=== PATIENT | female | born 1950 | race Caucasian/White ===

== ENCOUNTER → 2023-08-22 09:49 | Outpatient (REF) | payer MEDICARE, SELFPAY ==
[2023-08-22 11:27] LABS: % Basophils 1.1 % (0-2); % Eosinophils 2.9 % (0-6); % Immature Granulocytes 0.2 % (0-0.5); % Lymphocytes 25.8 % (20.5-51.1); % Monocytes 5.9 % (1.7-9.3); % Neutrophils 64.1 % (42.2-75.2); Absolute Basophils 0.1 10^3/uL (0-0.2); Absolute Eosinophils 0.2 10^3/uL (0-0.7); Absolute Lymphocytes 1.6 10^3/uL (1.2-3.4); Absolute Monocytes 0.4 10^3/uL (0.1-0.6); Hematocrit 39.4 % (37.0-47.0); Hemoglobin 13.2 g/dL (12.0-16.0); Mean Corp Hgb Conc. 33.5 g/dL (33.0-37.0); Mean Corpuscular Hgb 29.9 pg (27.0-31.0); Mean Corpuscular Volume 89.3 fL (81.0-99.0); Mean Platelet Volume 13.2 fL (7.4-10.4); Nucleated Red Blood Cells % 0 %; Platelet Count 222 10^3/uL (130-400); Red Blood Cell Count 4.41 10^6/uL (4.20-5.40); Red Cell Dist. Width 13.1 % (11.5-14.5); White Blood Cell Count 6.3 10^3/uL (4.8-10.8)
[2023-08-22 11:42] LABS: Urine Albumin Trace (Neg - Trace); Urine Bilirubin Negative (Negative); Urine Character Clear (Clear); Urine Color Yellow; Urine Glucose Negative (Negative); Urine Ketone Trace (Negative); Urine Leukocyte 1+ (Negative); Urine Nitrite Negative (Negative); Urine Occult Blood 1+ (Negative); Urine Specific Gravity 1.015 (<1.030); Urine Urobilinogen Negative (Neg - 1+)
[2023-08-22 11:49] LABS: ALT (SGPT) 17 U/L (0-35); AST (SGOT) 24 U/L (14-36); Albumin 4.3 g/dl (3.5-5.0); Alkaline Phosphatase 71 U/L (38-126); Blood Urea Nitrogen 15 mg/dl (7-17); Calcium 9.8 mg/dl (8.4-10.2); Carbon Dioxide 27 mmol/L (22-30); Chloride 105 mmol/L (98-107); Glucose 104 mg/dl (70-99); HDL Cholesterol 50 mg/dl; LDL Cholesterol, Calculated 56 mg/dl; Potassium 4.7 mmol/L (3.5-5.1); Sodium 141 mmol/L (135-145); Total Bilirubin 0.7 mg/dl (0.2-1.3); Total Cholesterol 129 mg/dl (50-199); Triglyceride 115 mg/dl (10-149); Very Low Density Lipoprotein 23 mg/dl (0-30); eGFR 53.39
[2023-08-22 12:04] LABS: Urine Amorphous Seen; Urine Mucus Many; Urine Squamous Cell 16-20 /LPF (Few); Urine Urothelial Cell 21-25 /LPF (FEW)
[2023-08-22 12:07] LABS: Urine Bacteria Few (Negative); Urine Red Blood Cell 0-2 /HPF (0-2)
[2023-08-22 12:09] LABS: Urine Hyaline Cast 0-2 /LPF (0-2)
== END ==
LOC: REG 09:49
PROVIDERS: ATTENDING PHYSICIAN Nurse Practitioner Family
DX: Z15.89 Genetic susceptibility to other disease (principal); Z15.01 Genetic susceptibility to malignant neoplasm of breast; Z00.00 Encounter for general adult medical examination without abnormal findings; I10 Essential (primary) hypertension
CPT/HCPCS: 36415; 80053; 80061; 81003; 81015; 85025

== ENCOUNTER → 2023-08-28 09:41 | Outpatient (REF) | payer MEDICARE, SELFPAY ==
[2023-08-28 11:53] LABS: Glycohemoglobin (HgbA1c) 5.9 % (4.0-5.6)
[2023-08-28 12:09] LABS: C-Reactive Protein < 5.00 mg/L (0.0-10.00)
[2023-08-28 12:20] LABS: ALT (SGPT) 21 U/L (0-35); AST (SGOT) 28 U/L (14-36); Albumin 4.3 g/dl (3.5-5.0); Alkaline Phosphatase 60 U/L (38-126); Blood Urea Nitrogen 16 mg/dl (7-17); Calcium 9.7 mg/dl (8.4-10.2); Carbon Dioxide 25 mmol/L (22-30); Chloride 106 mmol/L (98-107); Glucose 98 mg/dl (70-99); Potassium 4.4 mmol/L (3.5-5.1); Sodium 141 mmol/L (135-145); Total Bilirubin 0.5 mg/dl (0.2-1.3); Total Protein 6.9 g/dl (6.3-8.2); eGFR 59.86
[2023-08-28 12:30] LABS: Total Iron Binding Capacity 328 ug/dl (265-497)
[2023-08-28 13:15] LABS: TSH Reflex To Free T4 1.73 uIU/ml (0.47-4.68)
[2023-08-28 13:20] LABS: Ferritin 38.8 ng/ml (11.1-264.0)
[2023-08-28 13:52] LABS: Folate 11.4 ng/ml (2.76-20); Vitamin B12 294 pg/ml (239-931)
== END ==
LOC: REG 09:41
PROVIDERS: ATTENDING PHYSICIAN Nurse Practitioner Family
DX: R79.89 Other specified abnormal findings of blood chemistry (principal); M25.50 Pain in unspecified joint; Z79.899 Other long term (current) drug therapy; Z80.9 Family history of malignant neoplasm, unspecified; Z85.51 Personal history of malignant neoplasm of bladder; Z15.09 Genetic susceptibility to other malignant neoplasm
CPT/HCPCS: 36415; 80053; 82607; 82652; 82728; 82746; 82784; 83036; 83521; 83550; 84155; 84165; 84443; 86140; 86334

== ENCOUNTER 2024-11-08 09:24 | Emergency (ER) | payer MEDICARE, SELFPAY ==
[2024-11-08 09:29] VITALS: BP 115/68
--- NOTE | 2024-11-08 10:15 | ED.MUSCINJ ---
HPI-Injury
General
Chief Complaint: Musculo-Skeletal Complaint
Source: patient
Exam Limitations: none
Time Seen by Provider: 11/08/24 09:58
History of Present Illness-Injury
Initial Injury comments:
74-year-old female presents complaining of right foot pain starting yesterday. She misjudged a step and twisted her foot. She notes swelling and to the dorsal proximal and lateral foot. She has not been able to bear weight on it since then.
Phy Exam
Physical Exam
Physical Exam:
General: Well-appearing female in no acute distress
Musculoskeletal exam: Right foot is swollen ecchymotic and tender over the dorsal lateral foot the distal fibula and tibia are nontender.
Vascular: 2+ DP pulse right
Neurologic: Good sensation right foot
Injury Course
Orders/Labs/Results
Orders:
Orders
11/08/24 10:14
CR Foot - Right Min 3 Views Urgent
Comment:
Reason For Exam: injury
11/08/24 10:56
Ortho Boot Right- Treatment ONCE
Short or tall?: Short
MDM/Problems Addressed
Differential Diagnosis Includes:
Right foot pain after twisting injury. Question sprain versus fracture. X-rays right foot pending
*Pulse Oximetry
SaO2: 97
Oxygen Mode of Delivery: Room air
Patient hypoxic: no
*Critical Care Note
Total Time (30-74mins, 75-104mins- exclusive of procedures): Not Applicable
Update Note
Update Note:
X-rays negative for acute fracture or dislocation. Suspect underlying sprain or strain. Concern for possible ligament or tendon involvement. Will recommend she follow-up with orthopedics as an outpatient.
ED Attending Note
-
Portions of this chart may have been created with voice recognition software.� Occasional wrong word or��sound alike� substitutions may have occurred due to the inherent limitations of voice recognition software.
Discharge Plan
Departure
Patient Disposition: Home (Routine Discharge)
Date of Disposition: 11/08/24
Time of Disposition: 10:57
Patient with high blood pressure during this ER visit?: No
Discharge Problem:
Foot sprain
Instructions: Muscle and Bone Pain (DC)
Referrals:
Buddy Nails DO [Family Provider, Family Practice]
Hugo Shore DPM [Active, Podiatry]
Activity Restrictions/Additional Instructions:
Use boot for support when ambulating. Elevate for swelling. Follow-up with foot and ankle specialist for further evaluation
Interventions
Interventions:
*Risk Screen - Suicide Last Done: 11/08/24 09:31
*Neglect/Abuse Screening Last Done: 11/08/24 09:31
Discharge Date and Time
Print Language: [id number]
== END 2024-11-08 11:19 | disposition home or self-care (01) ==
LOC: EMR 09:24
PROVIDERS: EMERGENCY PHYSICIAN Emergency Medicine; FAMILY PHYSICIAN Family Medicine
DX: S93.601A Unspecified sprain of right foot, initial encounter (principal); X50.1XXA Overexertion from prolonged static or awkward postures, initial encounter
CPT/HCPCS: 99283; 73630

== ENCOUNTER → 2025-01-03 07:05 | Outpatient (REF) | payer MEDICARE, SELFPAY ==
[2025-01-03 08:00] LABS: Hematocrit 39.6 % (37.0-47.0); Hemoglobin 13.2 g/dL (12.0-16.0); Mean Corp Hgb Conc. 33.3 g/dL (33.0-37.0); Mean Corpuscular Volume 87.4 fL (81.0-99.0); Nucleated Red Blood Cells % 0 %; Platelet Count 201 10^3/uL (130-400); Red Cell Dist. Width 13.2 % (11.5-14.5)
[2025-01-03 08:23] LABS: ALT (SGPT) 22 U/L (0-35); AST (SGOT) 23 U/L (14-36); Albumin 4.4 g/dl (3.5-5.0); Alkaline Phosphatase 58 U/L (38-126); Blood Urea Nitrogen 11 mg/dl (7-17); Calcium 9.5 mg/dl (8.4-10.2); Carbon Dioxide 26 mmol/L (22-30); Chloride 107 mmol/L (98-107); Glucose 112 mg/dl (70-99); HDL Cholesterol 52 mg/dl; LDL Cholesterol, Calculated 59 mg/dl; Potassium 4.5 mmol/L (3.5-5.1); Sodium 141 mmol/L (135-145); Total Protein 7.1 g/dl (6.3-8.2); Very Low Density Lipoprotein 21 mg/dl (0-30); eGFR > 60.00
[2025-01-03 08:52] LABS: Ferritin 36.1 ng/ml (11.1-264.0)
[2025-01-03 09:02] LABS: Glycohemoglobin (HgbA1c) 5.7 % (4.0-5.6)
[2025-01-03 09:24] LABS: Folate 12.6 ng/ml (2.76-20); Vitamin B12 445 pg/ml (239-931)
[2025-01-05 22:18] LABS: Albumin 4.17 g/dL (3.75-5.01); Free Kappa Light Chains,Quant 24.02 mg/L (3.30-19.40); Free Lambda Light Chains,Quant 21.01 mg/L (5.71-26.30); Immunofixation Electrophoresis IFE Done; Kappa/Lambda Fr Light Ratio 1.14 (0.26-1.65); Total Protein-Electrophoresis 6.8 g/dL (6.3-8.2)
== END ==
LOC: REG 07:05
PROVIDERS: ATTENDING PHYSICIAN Nurse Practitioner Family
DX: Z13.220 Encounter for screening for lipoid disorders (principal); R20.0 Anesthesia of skin; R73.03 Prediabetes; Z13.21 Encounter for screening for nutritional disorder; Z79.899 Other long term (current) drug therapy; E61.1 Iron deficiency
CPT/HCPCS: 36415; 80053; 80061; 82607; 82652; 82728; 82746; 82784; 83036; 83521; 84155; 84165; 84443; 85025; 86334

== ENCOUNTER → 2025-01-06 11:51 | Outpatient (REF) | payer MEDICARE, SELFPAY ==
[2025-01-06 12:57] LABS: Urine Character Clear (Clear)
[2025-01-06 13:09] LABS: Hematocrit 40.2 % (37.0-47.0); Hemoglobin 13.4 g/dL (12.0-16.0); Mean Corp Hgb Conc. 33.3 g/dL (33.0-37.0); Mean Corpuscular Volume 88.9 fL (81.0-99.0); Nucleated Red Blood Cells % 0 %; Platelet Count 198 10^3/uL (130-400); Red Cell Dist. Width 13.0 % (11.5-14.5)
[2025-01-06 13:46] LABS: Urine Urothelial Cell 0-2 /LPF (FEW)
[2025-01-06 13:48] LABS: Urine Red Blood Cell 0-2 /HPF (0-2)
[2025-01-06 14:17] LABS: C-Reactive Protein < 5.00 mg/L (0.0-10.00)
== END ==
LOC: REG 11:51
PROVIDERS: ATTENDING PHYSICIAN Nurse Practitioner Family
DX: R77.9 Abnormality of plasma protein, unspecified (principal); Z85.51 Personal history of malignant neoplasm of bladder
CPT/HCPCS: 36415; 81003; 81015; 85025; 85652; 86140